=== PATIENT | male | born 1995 | race Caucasian/White ===

== ENCOUNTER 2020-05-10 23:58 | Emergency (ER) | payer SELFPAY ==
--- NOTE | 2020-05-11 00:34 | EDM.PDOCBH ---
ED HPI GENERAL MEDICAL PROBLEM - General Chief Complaint: Drug or Alcohol Abuse Stated Complaint: MED CLEARANCE Time Seen by Provider: 05/11/20 00:21 Source of Information: Reports: Patient, Police History Limitations: Reports: Other (Is awake and talking but he is obviously under the influence of alcohol and possibly drugs) - History of Present Illness INITIAL COMMENTS - FREE TEXT/NARRATIVE: Is a 24-year-old male. He comes to the ER by the police department. The patient states that he called himself and because he wanted to beat up his family with a hammer. I have no way of substantiate any of this is true or not. However he wanted to argue with me regarding definitions of medical terms he carried on a conversation with no difficulty. He walked in here on his own accord with no difficulty and no weaving. Do not feel at this time that is it is necessary to get an alcohol or drug screen since he is going to senior care anyway and he is able to walk with no difficulty at answer questions with no difficulty. Does not mean however that he is not wanting to be difficult. Bilateral Wrist Pain Score (Numeric/FACES): 2 - Related Data Allergies Allergy/AdvReac Type Severity Reaction Status Date / Time No Known Allergies Allergy Verified 05/11/20 00:14 Home Meds: Home Meds . [No Known Home Meds] 05/11/20 [History] Past Medical History - Past Health History Medical/Surgical History: Denies Medical/Surgical History Psychiatric History: Reports: Addiction Social & Family History - Family History Family Medical History: Noncontributory - Tobacco Use Smoking Status *Q: Current Every Day Smoker Years of Tobacco use: 4 Packs/Tins Daily: 0.1 - Caffeine Use Caffeine Use: Reports: Coffee, Soda - Alcohol Use Date of Last Drink: 05/10/20 Time of Last Drink: 21:30 - Recreational Drug Use Recreational Drug Use: Yes Drug Use in Last 12 Months: No Recreational Drug Type: Reports: Marijuana/Hashish ED ROS GENERAL - Review of Systems Review Of Systems: See Below Reason Not Obtained: He not wanting to answer questions so ROS not obtained ED EXAM, BEHAVIORAL HEALTH - Physical Exam Exam: See Below Exam Limited By: Other (To the influence of alcohol and possibly drugs) General Appearance: Alert, WD/WN, No Apparent Distress Eye Exam: Bilateral Eye: Normal Inspection (Does appear to be somewhat bug eyed when he stares at me) Ears: Normal External Exam Nose: Normal Inspection Throat/Mouth: No Airway Compromise Head: Normocephalic Neck: Supple Respiratory/Chest: No Respiratory Distress, Lungs Clear, Normal Breath Sounds Cardiovascular: Regular Rate, Rhythm, No Murmur Back Exam: Normal Inspection, Full Range of Motion Extremities: Normal Inspection, Normal Range of Motion Neurological: Alert, Other (Does not appear to have any neurological deficits in his upper and lower extremities and he walks with no difficulty) Psychiatric: Alert, Restless, Flight of Ideas, Homicidal Thoughts, Tangential Thoughts Skin Exam: Warm, Dry COURSE, BEHAVIORAL HEALTH COMP - Course Vital Signs: Last Vital Signs Temp 99.4 F 05/11/20 00:09 Pulse 146 H 05/11/20 00:09 Resp 20 05/11/20 00:09 BP 161/97 H 05/11/20 00:09 Pulse Ox 95 05/11/20 00:09 Departure - Departure Time of Disposition: 00:32 Disposition: Home, Self-Care 01 Condition: Fair Clinical Impression: Acute psychosis, Alcohol ingestion - Discharge Information *PRESCRIPTION DRUG MONITORING PROGRAM REVIEWED*: Not Applicable *COPY OF PRESCRIPTION DRUG MONITORING REPORT IN PATIENT ADIS: Not Applicable Instructions: Finding Treatment for Addiction Forms: ED Department Discharge Additional Instructions: I observe the patient in the ER and talked to him. He walks with no difficulty and does not appear to have any weaving in his walking. He is conversational though he does have some psychotic features with flight of ideas and tangential thoughts. I do not anticipate a deterioration of his physical condition and am releasing him with the officers to go to senior care. If there is any change in his physical condition bring him back to the ER. Sepsis Event Note (ED) - Evaluation Sepsis Screening Result: No Definite Risk - Focused Exam Vital Signs: Vital Signs Temp Pulse Resp BP Pulse Ox 05/11/20 00:09 99.4 F 146 H 20 161/97 H 95
== END 2020-05-11 00:41 | disposition home or self-care (01) ==
LOC: JD.ED 23:58
DX: T51.91XA Toxic effect of unspecified alcohol, accidental (unintentional), initial encounter (principal); F23 Brief psychotic disorder; F17.210 Nicotine dependence, cigarettes, uncomplicated
CPT/HCPCS: 99283; 99284